=== PATIENT | female | born 1985 | race African-American/Black ===

== ENCOUNTER 2021-10-02 12:06 | Emergency (ER) | payer OTHER ==
[~2021-10-02] VITALS: Ht 172.7 cm; Wt 137.0 kg
[2021-10-02] MEDS ORDERED: LORAZEPAM 2MG/ML CPJ IV STA ×2 (12:45→14:52)
[2021-10-02] MEDS ORDERED: HALOPERIDOL LACTATE 5MG/ML VIAL IM STA ×2 (12:45→14:52)
[2021-10-02 13:39] LABS: BASOPHILS % 0.1 % (0.0-2.0); EOSINOPHILS % 0.1 % (0.0-5.0); HEMATOCRIT. 42.9 % (36.0-48.0); LYMPHOCYTES % 23.9 % (20.0-50.0); MEAN CORPUSCULAR HEMOGLOBIN 25.1 pg (28.0-32.0); MEAN CORPUSCULAR VOLUME 77.1 fL (81.0-99.0); MEAN PLATELET VOLUME 9.5 fl (7.4-10.4); MONOCYTES % 9.8 % (2.0-8.0); NEUTROPHILS % 66.1 % (40.0-76.0); PLATELET 214 x1000/uL (130-400); RED BLOOD CELL COUNT 5.57 mill/uL (4.2-5.4); RED CELL DISTRIBUTION WIDTH 17.4 % (11.6-14.6)
[2021-10-02 13:48] LABS: CHLORIDE 110 mEq/L (98-107)
[2021-10-02 13:52] LABS: ETHANOL BLOOD < 10 mg/dL
[2021-10-02 14:48] LABS: HCG SCREEN NEGATIVE
[2021-10-02] MEDS ORDERED: LORAZEPAM 2MG/ML CPJ IM ONE (16:00)
[2021-10-02] MEDS ORDERED: HALOPERIDOL LACTATE 5MG/ML VIAL IM ONE (16:00)
[2021-10-02] MEDS ORDERED: RISPERIDONE 1MG TABLET PO SCH (21:00)
[2021-10-03] MEDS: RISPERIDONE 1MG TABLET PO SCH (09:00)
[2021-10-03 10:45] LABS: CLARITY URINE CLOUDY (CLEAR); COLOR URINE DARK YELLOW (YELLOW); KETONES URINE 2+ (NEGATIVE); LEUKOCYTE ESTERASE URINE 2+ (NEGATIVE); NITRITE URINE NEGATIVE (NEGATIVE); OCCULT BLOOD URINE TRACE (NEGATIVE); PH URINE 5.5 (4.5-8.0); PROTEIN URINE TRACE (NEGATIVE); SPECIFIC GRAVITY URINE 1.017 (1.005-1.030)
[2021-10-03 10:59] LABS: *AMPHETAMINES SCREEN URINE NEGATIVE (NEGATIVE); *BARBITURATES SCREEN URINE NEGATIVE (NEGATIVE); *BENZODIAZEPINES SCREEN URINE NEGATIVE (NEGATIVE); *COCAINE SCREEN URINE NEGATIVE (NEGATIVE); METHADONE URINE SCREEN NEGATIVE (NEGATIVE)
[2021-10-03 11:00] LABS: OPIATES URINE SCREEN NEGATIVE (NEGATIVE); PHENCYCLIDINE URINE SCREEN NEGATIVE (NEGATIVE)
[2021-10-03 11:01] LABS: CANNABINOID URINE SCREEN PRESUMTIVE POSITIVE (NEGATIVE)
[2021-10-03] MEDS ORDERED: HALOPERIDOL LACTATE 5MG/ML VIAL IM STA (16:27)
[2021-10-03] MEDS ORDERED: LORAZEPAM 2MG/ML CPJ IM ONE (16:30)
[2021-10-04] MEDS ORDERED: LORAZEPAM 2MG/ML CPJ IM STA (02:50)
[2021-10-04] MEDS ORDERED: HALOPERIDOL LACTATE 5MG/ML VIAL IM STA (02:50)
[2021-10-04] MEDS ORDERED: LORAZEPAM 2MG/ML CPJ IM ONE (06:00)
[2021-10-04] MEDS ORDERED: HALOPERIDOL LACTATE 5MG/ML VIAL IM ONE (06:00)
[2021-10-04] MEDS: RISPERIDONE 1MG TABLET PO SCH ×2 (09:00→21:00)
[2021-10-05] MEDS ORDERED: BACITRACIN ZINC OINT UDPKT TOP ONE (03:45)
[2021-10-05 08:00] VITALS: BP 129/70
[2021-10-05] MEDS: RISPERIDONE 1MG TABLET PO SCH (09:00)
== END 2021-10-05 14:08 | disposition home or self-care (01) ==
LOC: EDBD 12:06 → ER 12:06
DX: U07.1 COVID-19 (principal); R45.1 Restlessness and agitation; R51.9 Headache, unspecified; I49.9 Cardiac arrhythmia, unspecified; Z98.890 Other specified postprocedural states
CPT/HCPCS: 36415; 70450; 80053; 80307; 80320; 80329; 84443; 84703; 85025; 93005; 96372; 96374; 99285; C9803; J1630; J2060; U0005; Z7610; G0480

== ENCOUNTER 2021-12-08 12:11 | Emergency (ER) | payer SELFPAY ==
[~2021-12-08] VITALS: Ht 157.5 cm; Wt 140.0 kg
[2021-12-08 13:41] LABS: BASOPHILS % 0.6 % (0.0-2.0); EOSINOPHILS % 0.7 % (0.0-5.0); HEMATOCRIT. 38.1 % (36.0-48.0); HEMOGLOBIN. 12.9 g/dL (12.0-16.0); LYMPHOCYTES % 27.7 % (20.0-50.0); MEAN CORPUSCULAR HEMOGLOBIN 26.7 pg (28.0-32.0); MEAN CORPUSCULAR VOLUME 78.7 fL (81.0-99.0); MEAN PLATELET VOLUME 9.4 fl (7.4-10.4); MONOCYTES % 9.7 % (2.0-8.0); NEUTROPHILS % 61.3 % (40.0-76.0); PLATELET 230 x1000/uL (130-400); RED BLOOD CELL COUNT 4.84 mill/uL (4.2-5.4); RED CELL DISTRIBUTION WIDTH 17.3 % (11.6-14.6)
[2021-12-08] MEDS ORDERED: HALOPERIDOL LACTATE 5MG/ML VIAL IM ONE ×3 (13:45→21:30)
[2021-12-08 13:47] LABS: CHLORIDE 106 mEq/L (98-107)
[2021-12-08 13:51] LABS: ETHANOL BLOOD < 10 mg/dL
[2021-12-08 14:48] LABS: CLARITY URINE CLEAR (CLEAR); COLOR URINE YELLOW (YELLOW); KETONES URINE 4+ (NEGATIVE); LEUKOCYTE ESTERASE URINE 1+ (NEGATIVE); NITRITE URINE NEGATIVE (NEGATIVE); OCCULT BLOOD URINE NEGATIVE (NEGATIVE); PH URINE 5.5 (4.5-8.0); PROTEIN URINE NEGATIVE (NEGATIVE); SPECIFIC GRAVITY URINE 1.016 (1.005-1.030)
[2021-12-08 15:08] LABS: *AMPHETAMINES SCREEN URINE NEGATIVE (NEGATIVE); *BARBITURATES SCREEN URINE NEGATIVE (NEGATIVE); *BENZODIAZEPINES SCREEN URINE NEGATIVE (NEGATIVE)
[2021-12-08 15:09] LABS: *COCAINE SCREEN URINE NEGATIVE (NEGATIVE); CANNABINOID URINE SCREEN NEGATIVE (NEGATIVE); METHADONE URINE SCREEN NEGATIVE (NEGATIVE); OPIATES URINE SCREEN NEGATIVE (NEGATIVE); PHENCYCLIDINE URINE SCREEN NEGATIVE (NEGATIVE)
[2021-12-08] MEDS ORDERED: OLANZAPINE 10 MG/VIAL IM STA (15:34)
[2021-12-08] MEDS ORDERED: LORAZEPAM 2MG/ML CPJ IV ONE (17:30)
[2021-12-08] MEDS ORDERED: DIPHENHYDRAMINE 50MG/ML VIAL IM ONE (20:45)
[2021-12-08] MEDS ORDERED: LORAZEPAM 2MG/ML CPJ IM ONE (21:00)
[2021-12-08] MEDS ORDERED: KETAMINE HCL 50 MG/ML 10ML IM ONE (22:45)
[2021-12-09] MEDS ORDERED: ZIPRASIDONE MESYLATE 20MG/VIAL IM SCH (02:45)
[2021-12-09] MEDS ORDERED: DIPHENHYDRAMINE 50MG/ML VIAL IM STA (05:39)
[2021-12-09] MEDS ORDERED: LORAZEPAM 2MG/ML CPJ IV ONE (05:45)
[2021-12-09] MEDS ORDERED: OLANZAPINE 10 MG/VIAL IM ONE (05:45)
[2021-12-09] MEDS ORDERED: LITHIUM CARBONATE 150 MG CAPSULE PO ONE (07:45)
[2021-12-09] MEDS ORDERED: OLANZAPINE 10MG TABLET PO ONE (07:45)
[2021-12-09 11:15] VITALS: BP 144/92
== END 2021-12-09 11:16 | disposition home or self-care (01) ==
LOC: ER 12:11
DX: F30.9 Manic episode, unspecified (principal); Z20.822 Contact with and (suspected) exposure to COVID-19
CPT/HCPCS: 36415; 80053; 80305; 80307; 80320; 80329; 81003; 81025; 85025; 93005; 96372; 96374; 99285; C9803; J1200; J1630; J2060; J3486; J3490; U0003; U0005; Z7610; G0480